=== PATIENT | male | born 1950 | race Caucasian/White ===

== ENCOUNTER → 2019-10-31 | Outpatient (CLI) | payer OTHER ==
--- NOTE | 2019-10-31 16:51 | CARDNUC ---
[place] [address] CARDIAC NUCLEAR IMAGING REPORT Name: JOHNNA HADLEY Room: [facility]#: [id number] Admission: 10/31/19 Attend Phys: Stanley Lew Discharge: Date of : 48 Date of Service: 10/31/19 1650 Report #: [id number] THIS REPORT FOR: cc: Tre Bryant MD, David L. MD Liston, Michael J. MD [facility] ~ APPROVED REPORT Study performed: 10/31/2019 14:57:31 Exam: Nuclear Stress Test Indication: Dyspnea Patient Location: Out-Patient Stress Tech: Philly Carlson Stress Nurse: Inessa Newton RN Ht: 6 ft 1 in Wt: 190 lbs BSA: 2.11 m2 BMI: 25.06 Medical History Medical History: CAD s/p DE, CAD s/p stent Medications: asa 81, atorvasttin, ramipril Allergies: zoloft, codeine, bees Cardiac Risk Factors: age, HTN, Hyperlipidemia, Tobacco History (Former), FHX of CAD Previous Cardiac Procedures: PCI Exercise History: Physically active Stress Test Details Stress Test: Exercise stress testing was performed using a David protocol. HR Resting HR: 71 bpm Max Heart Rate (APMHR): 150 bpm Max HR Achieved: 137 bpm Target HR (85% APMHR): 127 bpm % of APMHR: 91 Recovery HR: 81 bpm BP Resting BP: 119/83 mmHg Max BP: 186/91 mmHg ECG Resting ECG: Sinus Rhythm Stress ECG: [place] [address] CARDIAC NUCLEAR IMAGING REPORT Name: JOHNNA HADLEY Room: [facility]#: [id number] Admission: 10/31/19 Attend Phys: Stanley Lew Discharge: Date of : 48 Date of Service: 10/31/19 1650 Report #: [id number] Change: None Arrhythmia: None Recovery ECG: Sinus Rhythm Recovery ST Change: None Recovery Arrhythmia: None Clinical Reason for Termination: Maximal effort, Dyspnea Exercise duration: 5 min 59 sec Exercise capacity: 7.05 METs Overall Exercise Capacity for Age: Reduced Functional Aerobic Impairment 90% The patient tolerated standard David protocol exercise without cardiac symptoms. Exercise was stopped due to fatigue. Stress ECG Conclusion The baseline 12-lead EKG shows sinus rhythm without significant ST segment depression or T wave abnormality. EKGs obtained during and post exercise stress showed sinus rhythm and sinus tachycardia with no significant ST segment or T wave changes when compared to baseline. There were no significant stress-induced arrhythmias. NM EXAM: Myocardial Perfusion REST/STRESS Imaging Protocol: Rest Tc-99m/Stress Tc-99m 1 day Resting Data Rest SPECT myocardial perfusion imaging was performed in supine position 30 minutes following the intravenous injection of 10.0 mCi of Tc-99m Sestamibi. Time of rest injection: 12:50 The images were gated to evaluate regional wall motion and calculate left ventricular ejection fraction. Administration Route: IV Administration Site: Right AC Exercise Stress At peak stress, the patient was injected intravenously with 31.4mCi of Tc-99m Sestamibi. Time of stress injection: 15:10 Administration Route: IV Administration Site: Right AC Heart Rate at time of stress injection: 137 bpm. Gated Stress SPECT was performed 30 minutes after stress injection. The images were gated to evaluate regional wall motion and calculate [place] [address] CARDIAC NUCLEAR IMAGING REPORT Name: JOHNNA HADLEY Room: [facility]#: [id number] Admission: 10/31/19 Attend Phys: Stanley Lew Discharge: Date of : 48 Date of Service: 10/31/19 1650 Report #: [id number] Prone imaging was performed. Study Quality Study: Good Artifact: Mild Diaphragmatic artifact Study Data At rest, the left ventricular ejection fraction was 60%.. Post stress, the left ventricular ejection was 57%.. TID = 0.82. Perfusion Perfusion images obtained in the supine position at rest and post exercise stress show a moderate region of photopenia that is more pronounced on resting and stress images consistent with diaphragmatic attenuation artifact. Post stress prone imaging shows uniform uptake of the radioisotope throughout the myocardium without defect. Wall Motion Normal left ventricular wall motion. Nuclear Conclusion ECG Findings: negative for ischemia Clinical Findings: negative for ischemia Nuclear Findings: negative for ischemia Exercise Capacity: fair Left Ventricular Function: normal Risk Study: low Perfusion images show no defect to suggest ischemia. Left ventricular systolic function appears normal on gated studies. This is a low risk study. <Conclusion> The baseline 12-lead EKG shows sinus rhythm without significant ST segment depression or T wave abnormality. EKGs obtained during and post exercise stress showed sinus rhythm and sinus tachycardia with no significant ST segment or T wave changes when compared to baseline. There were no significant stress-induced arrhythmias. <ELECTRONICALLY SIGNED> By: Cj Garcia MD, FACC 10/31/191649 49 48 Cj Garcia MD, FACC /INF
== END ==
LOC: M.NUC 10-23 07:08
DX: I25.10 Atherosclerotic heart disease of native coronary artery without angina pectoris (principal); R06.09 Other forms of dyspnea; I25.2 Old myocardial infarction; I10 Essential (primary) hypertension

== ENCOUNTER → 2020-11-13 | Outpatient (CLI) | payer OTHER | LOC: M.ULTRA 08:22 | PROVIDERS: ATTEND Internal Medicine | DX: R79.89 Other specified abnormal findings of blood chemistry (principal) ==

== ENCOUNTER → 2021-04-22 | Outpatient (CLI) | payer OTHER | LOC: M.CT 07:56 | PROVIDERS: ATTEND Internal Medicine | DX: K57.30 Diverticulosis of large intestine without perforation or abscess without bleeding (principal); R16.0 Hepatomegaly, not elsewhere classified; R74.8 Abnormal levels of other serum enzymes; R79.89 Other specified abnormal findings of blood chemistry; C61 Malignant neoplasm of prostate; N18.31 Chronic kidney disease, stage 3a ==